=== PATIENT | female | born 1940 | race Caucasian/White ===

== ENCOUNTER 2017-02-05 09:45 | Day surgery (SDC) | payer MEDICARE, OTHER ==
[~2017-02-05] VITALS: Ht 165.1 cm; Wt 100.2 kg
[2017-02-05] VITALS (11 sets, daily range): BP systolic 121–151; BP diastolic 51–77; PULSE 65–71; RESP 12–18; O2SAT 94–98
[~2017-02-05 09:45] MED LIST: CALC3.8S NS; CLOB15CR3 TOP; COLC0.6C3 PO; Dexamethasone 4 mg/mL Inj IVPUSH PRN; EPHEDrine Sulfate 50 mg/mL Inj IVPUSH PRN; GABA-500 PO; HYDROmorphone 1 mg/mL Inj IVPUSH PRN; KETO120S3 TP; LEVO88TA4 PO; LIOT25TA4 PO; Labetalol 5 mg/mL 4 mL Inj IV PRN; Lactated Ringer's 1,000 ML IV SCH; Lactated Ringer's 500 ML IV PRN; METO25TA6 PO; MetoCLOpramide 5 mg/mL 2 mL Inj IVPUSH PRN; OMEP20CA11 PO; Ondansetron 2 mg/mL 2 mL Inj IVPUSH PRN; Phenylephrine 10,000 mCg/mL Inj IVPUSH PRN; TRIA1CAP5 PO; WARF2.5T82 PO; WARF5TAB7 PO; fentaNYL-PF 50 mCg/mL 2 mL Inj IVPUSH PRN; hydrALAZINE 20 mg/mL Inj IVPUSH PRN; vitamin d2
[2017-02-05] MEDS ORDERED: Propofol 10,000 mCg/mL 20 mL Inj ONE (09:46)
[2017-02-05] MEDS ORDERED: Ondansetron 2 mg/mL 2 mL Inj ONE (09:46)
[2017-02-05] MEDS ORDERED: fentaNYL-PF 50 mCg/mL 2 mL Inj ONE (09:46)
[2017-02-05] MEDS ORDERED: Ketamine 10 mg/mL 20 mL Inj ONE (09:46)
[2017-02-05] MEDS ORDERED: Dexamethasone 4 mg/mL Inj ONE (09:46)
[2017-02-05] MEDS: Lactated Ringer's 1,000 ML IV SCH ×2 (10:52→12:51)
[2017-02-05 11:19] LABS: INR 1.09 ratio
[2017-02-05] MEDS ORDERED: Bupivacaine 0.5%/EPI 50 mL Inj INFILTRATE ONE (12:50)
--- NOTE | 2017-02-05 12:52 | PCM.HPANE ---
Patient Data Date of Service: February 05, 2017 Surgeon Admitting Provider: Attending Provider:Neo Thomas MD Primary Care Physician:Andry Seymour MD Other Provider:Caridad Perez Anesthesia Reason for Visit Left Breast Lobular Carcinoma In Situ Ht/WT & BMI Height (Feet): 5 Height (Inches): 5.00 Weight (Kilograms): 100.2 Body Mass Index 36.00 Allergies Coded Allergies: codeine (Verified Allergy, Severe, Nausea,Vomiting, 02/11/14) Penicillins (Verified Allergy, Unknown, 02/11/14) Sulfa (Sulfonamide Antibiotics) (Verified Allergy, Unknown, 02/11/14) alprazolam (Verified Adverse Reaction, Severe, BLACKOUT X 24 HRS, 02/11/14) Past Anesthesia History Anesthesia History: Denies:: Anesthesia Reactions (sensitive to sedation, ), Fam Anesthesia Reaction, Fam Malignant Hypertherm, Malignant Hyperthermia Diabetes History Hx Diabetes?: No MRSA MRSA: No Medications Blood Thinner: Coumadin Hypertension Medication: Yes Home Meds Incl Beta Hosea: Yes Date Beta Hosea Taken: February 05, 2017 Time Beta Hosea Taken: 0730 Reported Medications Warfarin Sodium 5 Mg Tablet5 Mg PO 6xweek 30 Days Ref 0 01/31/17 Warfarin Sodium 2.5 Mg Tablet2.5 Mg PO saturday 30 Days Ref 0 01/31/17 [vitamin d2] No Conflict Check50,000 Iu WEEKLY 01/31/17 Triamterene/HCTZ 37.5-25 mg 1 Each Capsule1 Capsule PO DAILY Ref 0 01/31/17 Omeprazole 20 Mg Capsule.dr20 Mg PO DAILY Ref 0 01/31/17 Metoprolol Tartrate 25 Mg Apahbj77 Mg PO BID 30 Days Ref 0 01/31/17 Levothyroxine 88 Mcg Urymxw10 Mcg PO DAILY Ref 0 01/31/17 Ketoconazole 120 Ml Dqqajkd668 Ml TP DAILY PRN For Itching 01/31/17 Gabapentin 100 Mg Mynjsmj505 Mg PO HS 30 Days Ref 0 01/31/17 Liothyronine Sodium (Cytomel)25 Mcg Tmkibg83.5 Mcg PO DAILY 01/31/17 Colchicine 0.6 Mg Capsule0.6 Mg PO BID PRN gout 01/31/17 Discontinued Reported Medications Clobetasol Propionate/Emoll (Clobetasol Emollient 0.05% Crm)15 Gm Cream..g.1 Appl TOP 2-3xweekly #1 TUBE 01/31/17 Calcitonin,[place],Synthetic (Calcitonin-[place])3.7 Ml Manley.pump3.7 Ml NS DAILY 01/31/17 Ergocalciferol (Vitamin D2) (Vitamin D2)50,000 Unit Wjuuezc73,000 Unit PO QW 30 Days 02/28/15 Triamterene/HCTZ 37.5-25 mg (Dyazide 37.5-25 mg)1 Each Capsule1 Each PO DAILY 30 Days Ref 0 02/28/15 Calcitonin,[place],Synthetic (Miacalcin)200 Unit/1 Ml Crgv091 Unit IJ DAILY 02/28/15 Colchicine (Colcrys)0.6 Mg Tablet1.2 Mg PO PRN 00 02/28/15 Warfarin Sodium (Coumadin)5 Mg Tablet5 Mg PO wed 30 Days Ref 0 02/28/15 Warfarin Sodium 5 Mg Tablet7.5 Mg PO daily except wed 30 Days Ref 0 02/28/15 Triamterene/HCTZ 37.5-25 mg 1 Each Capsule0.5 Tab PO DAILY FLUID RETENTION IN THE BRAIN 0 Days Ref 0 02/09/14 Omeprazole 20 Mg Capsule.dr20 Mg PO DAILYAC 0 Days Ref 0 02/09/14 Levothyroxine 88 Mcg Wmcuxc70 Mcg PO DAILY thyroid 0 Days Ref 0 02/09/14 Liothyronine Sodium (Cytomel)25 Mcg Ehtdxg53.5 Mcg PO DAILY thyroid 02/09/14 Albuterol HFA 8.5 Gm Hfa.aer.ad2 Puff IH Q4-6H PRN breathing #1 INHALER Ref 0 02/09/14 Discontinued Scripts Aspirin (Aspir 81)81 Mg Tablet.dr81 Mg PO DAILY until INR therapeutic 7 Days Ref 0 Prov:Meg Gregg MD 02/14/15 [Diltiazem Hcl] (Cardizem CD)180 MG CAP.ER.24H No Conflict Tqkhx437 Mg PO DAILY #30 Prov:Meg Gregg MD 02/14/15 History History of ENT Problems?: No HEENT History: Positive for:: Glaucoma (had laser surgery for, no gtts) Sinus Problem (environmental allergies "dripping now") Denies:: Cataracts Dysphagia Hearing Problem Denture Type: None Teeth Condition: Within Normal Limits Hx of Heart Problems?: Yes Cardiovascular History: Positive for:: Atrial Fibrillation (PAF) Chest Pain (current) Edema Hypertension Irregular Heartbeat (PAF one episode - converted on her own less than 24 hours ) Denies:: Cardiac Surgery Congestive Heart Failure Heart Murmur Pacemaker Thrombophlebitis Other Cardiac History: Aortic stenosis Hx of Respiratory Problem?: No Respiratory History: Denies:: Asthma COPD Chest Surgery Dyspnea Emphysema Hemoptysis Oxygen Administration Pneumonia Tuberculosis Use of C-PAP Machine Use of Inhalers / NEBS Hx Neurologic Problems?: No Neurological History: Denies:: Dizziness Headaches Multiple Sclerosis Parkinson's Disease Seizures TIA Hx of GI Problems?: Yes Hx of Problems?: Yes Genitourinary History: Denies:: HX of Hemodialysis Kidney Stones Urinary Tract Infection Female Hx: Positive for:: Problems with Breasts? (left breast ca current admission problem) Denies:: Currently Endometriosis Pelvic Inflammatory Skin History: Denies:: History Skin Disorders? Pressure Ulcers Hx Musculoskeletal Problems?: Yes Musculoskeletal History: Positive for:: Back Injury (hx of fx ) Joint Replacement (right total knee) Osteoarthritis Denies:: Fibromyalgia Musculoskeletal Trauma (hx of acromioplasty) Systemic Lupus Hx of Psycho/Social Problems?: Yes Psycho Social History: Denies:: Anxiety (PTSD when major crises occur overseas ) Hx Depression Hx Surgeries?: Yes (, (R) Knee, bladder suspension, acromioplasty) Hx Any Other Health Problems?: Yes Other History: Positive for:: Cancer (left breast current admission problem) Hospitalization Thyroid Disease History Blood Transfusions: Positive for:: Accept Blood Products? Blood Transfuse Reaction Denies:: Blood Transfusions Hx Diabetes: No Hx Alcohol Use: YesAlcoholic Drinks Per Day: yearly, holidaysHx Substance Use : No Smoking Status: Never Smoker Have You Smoked inLast 12 mo: No Stop/Bang S-Snoring: Do You Snore Loudly: No T-Tired: feel tired, fatigued: No O-Obsered: Observed not breath: No P-Blood Pressure: treated: Yes B- Body Mass Index > 35 kg/m2: Yes A- Age over 50: Yes N- Neck Large Circumference: No G- Gender Male: No LASHAWN Total Score: 3 LASHAWN Risk Assessment: Low Risk, <3 Yes Risk Assessment Category Category 1A: Patient has history of documented sleep apnea, and HAS NOT received any narcotic, sedative or anesthesia administration during this stay. Category 1B: Patient has history of documented sleep apnea, and HAS received any narcotic , sedative or anesthesia administration during this stay Category 2: Patient has SUSPECTED Obstructive Sleep Apnea, and HAS received any narcotic , sedative or anesthesia administration during this stay. Category 3: Patient has SUSPECTED Obstructive Sleep Apnea and HAS NOT received narcotic, sedative or anesthesia administration during this stay. Category 4: Outpatient in Procedural Areas with known sleep apnea or who screen positive for High Risk via the STOP/BANG questionnaire. Exam Exam Vital Signs Vital Signs Date Time Temp Pulse Resp B/P Pulse Ox O2 Delivery O2 Flow Rate FiO2 02/05/17 10:40 36.7 66 16 151/75 98 Room Air General Appearance: Alert, Oriented X3, Cooperative, No Acute Distress HEENT/AIRWAY: MP 4, Neck Movement Lungs: Clear to Auscultation, Normal Air Movement Heart: Exam Unremarkable, Regular Rate/Rhythm, No Murmurs/Rubs/Gallops Meds/Labs/Diagnostics Admission Meds Current Medications Lactated Ringer's (Lr) 1,000 ml @ 120 mls/hr Q8H20M IV Last administered on t 10:52; Start 02/05/17 at 05:00; Stop 02/05/17 at 13:19 Labs Test 02/05/17 10:48 Prothrombin Time 11.7sec (8.1-12.5) Prothromb Time International Ratio 1.09ratio Plan Impression Patient chart reviewed, patient interviewed and anesthestic plan with risks, benefits, and alternatives discussed, and informed consent obtained. NPO per Anesth. Guidelines: Yes ASA Physical Status: ASA3 Severe Disease Anesthetic Plan: GA Bene/Risks/Altern/Consents: Yes HP Complete Prior to Induction: Yes Alvin Solis MD February 05, 2017 12:52
--- NOTE | 2017-02-05 13:29 | PCM.DISURG ---
Surgical Discharge Instruction Date of Service February 05, 2017 Dates of Hospitalization Date of Hospital Admission Providers Admitting Physician: Primary Care Physician: Andry Seymour MD Attending Physician: Neo Thomas MD Discharge Diagnosis Discharge Diagnosis Left breast LCIS Diet Discharge Diet: No restrictions Activity Discharge Activity-General: No restrictions Dressing and Incisional Care Dressing Care: Allow Steri Stripes to fall off, Remove outer dressing after 24 hrs Hygiene: May shower after (24 hours) Follow Up Plan Follow Up Plan With Dr. Thomas in surgery clinic in 2 weeks Call your provider for: Fever (over 101.5), Discharge @ incision, pus discharge Neo Thomas MD February 05, 2017 13:29
[2017-02-05] MEDS ORDERED: HYDROcodone-APAP 5-325 mg Tablet PO PRN (13:30)
--- NOTE | 2017-02-05 13:35 | PCM.SURGOP ---
Surgical Operative Report Date of Service: February 05, 2017 Pre Operative Diagnosis Left breast lobular carcinoma in situ Post Operative Diagnosis Same Procedure: Wire localized left partial mastectomy Surgeon and Filler Wiper: Surgeon: Neo Thomas MD Assistants: None Indication for Procedure 76-year-old woman who was found to have pleomorphic microcalcifications in the left breast 9 o'clock position. Stereotactic biopsy demonstrated lobular carcinoma in situ. There were some associated microcalcifications anterior and lateral. After discussion of risks and benefits, she agreed to proceed with wire localized left partial mastectomy. Findings: The microcalcifications were successfully localized. Procedure Details Preoperatively, the patient underwent wire localization in the [facility]. She was then brought to the operating room where she underwent smooth induction of general anesthesia with an LMA. She was placed in the supine position with the left arm out, and was prepped and draped in wide sterile fashion. A procedural pause was performed according to the SCOAP checklist, and all were found to be in agreement. A transverse incision was made in the left medial breast, approximately 2 cm medial to the wire. Skin flaps were raised superiorly and inferiorly. The wire was delivered into the wound from the medial aspect. Circumferential dissection was then carried out through the breast parenchyma, using the wire as a guide. Breast tissue was excised from the lower inner quadrant, oriented with suture, and a specimen x-ray was obtained. This confirmed that microcalcifications had been successfully localized. That tissue was sent for permanent pathology, labeled as left breast tissue, lower inner quadrant. A separate lateral margin was obtained with electrocautery, oriented with suture, and sent for permanent pathology. The cavity was marked with hemoclips. The breast parenchyma was closed with interrupted 3-0 Vicryl sutures. The skin incision was closed with a running 4-0 Vicryl subcuticular stitch. Steri- Strips and sterile dressings were applied. At the end of the case all needle and sponge counts were correct 2. The patient was awakened from anesthesia without difficulty, and taken to the recovery room in satisfactory condition, having tolerated the procedure well. Complications There were no periprocedural complications identified. Surgical Specimen Removed: Yes Specimen sent to Pathology: Yes Surgical Specimen description: Left breast tissue, lower inner quadrant. Lateral margin. Anesthetic Plan: GA Grafts, Implants: None Output, Estimated Blood Loss: 10 Blood Administration during lock: No Drains: None Catheters: None copies to: Andry Seymour MD; Sailaja Vieira MD, Joshua D MD February 05, 2017 13:35
--- NOTE | 2017-02-05 13:51 | PCM.ANEP1 ---
Post Anesthesia Phase 1 PACU Phase 1 Assessment Date of Service: February 05, 2017 Vital Signs Vital Signs Date Time Temp Pulse Resp B/P Pulse Ox O2 Delivery O2 Flow Rate FiO2 02/05/17 13:35 69 15 122/54 97 Room Air 02/05/17 13:30 69 12 126/53 94 Room Air 02/05/17 13:27 36.3 71 18 121/54 95 Room Air 02/05/17 10:40 36.7 66 16 151/75 98 Room Air Anesthetic Administered: GA Level of Alertness: Awake, talking Pain: No Nausea or Vomiting: No Cardiovascular Function and Hy: Yes Oxygen Delivery: Room Air Lungs: Clear to Auscultation, Normal Air Movement Complications: No Alvin Solsi MD February 05, 2017 13:51
--- NOTE | 2017-02-06 08:05 | DRSVH ---
SPECIMEN LEFT BREAST: 02/05/2017 CLINICAL: Breast specimen. Correlation is made to exams dated: 12/27/2016 mammogram, 02/05/2017 localization, 12/24/2016 mammogram, and 01/10/2017 stereotactic biopsy - [facility]. A lumpectomy specimen was imaged for the area of clustered pleomorphic calcifications located in the left breast at 9 o'clock posterior depth. This was described on the previous mammography and biopsy reports. IMPRESSION: SPECIMEN The imaged specimen includes the calcifications and the distal portion of the localization wire and d oes not include biopsy clip. Waiting for pathology results. A final report will be issued when thes e become available. This exam was interpreted at Station ID: [id number]. Harsh ponce/rory:02/05/2017 13:27:00 Additional referring physicians: ADELAIDA GIL RYAN GUARY
--- NOTE | 2017-02-07 15:40 | PATH ---
SURGICAL PATHOLOGY Attending Physician:Kristie Marcos CASE STATUS: Signed Out PATIENT NAME: JONO ALLEN PID: [id number] : 1940 DATE COLLECTED:02/05/2017 00:00 SPECIMEN: 1: Breast Mass, Excision (Wire Localization) 2: Breast Margin CLINICAL HISTORY: LEFT BREAST CARCINOMA 1). LEFT BREAST TISSUE LOWER INNER QUADRANT, SHORT STITCH SUPERIOR, LONG STITCH LATERAL 2). LEFT BREAST LATERAL MARGIN, SHORT STITCH SUPERIOR, LONG STITCH POSTERIOR FINAL DIAGNOSIS: 1.LEFT BREAST, ORIENTED EXCISIONAL BIOPSY: LOBULAR NEOPLASIA (ATYPICAL LOBULAR HYPERPLASIA WITH SMALL FOCI OF LOBULAR CARCINOMA IN SITU) SPANNING APPROXIMATELY 4.5 CM IN THE MEDIAL HALF OF THE SPECIMEN, SEE COMMENT. NO INVASIVE CARCINOMA IDENTIFIED. PRIOR CORE BIOPSY SITE IDENTIFIED. FOCAL USUAL DUCTAL EPITHELIAL HYPERPLASIA, NO ATYPIA. FOCAL APOCRINE METAPLASIA. CALCIFICATIONS ASSOCIATED WITH BENIGN GLANDS. 2.LEFT BREAST LATERAL MARGIN: LOBULAR NEOPLASIA (ALH WITH FOCAL LCIS), SPANNING APPROXIMATELY 3.0 CM, SEE COMMENT. NO INVASIVE CARCINOMA IDENTIFIED. FOCAL APOCRINE METAPLASIA. CALCIFICATIONS ASSOCIATED WITH ALH AND WITH BENIGN GLANDS. ICD10 code D05.0 NOTE: Both specimens contain lobular neoplasia, primarily atypical lobular hyperplasia with small foci of lobular carcinoma in situ. The lobular neoplasia is of classic type (no pleomorphic features identified). No invasive carcinoma is identified in either specimen. These findings were discussed by telephone with Dr. Thomas on 02/07/[address] Villasenor. GROSS DESCRIPTION: The specimens are received in formalin, labeled with the patient's name, and sublabeled as the following: (1) left breast tissue lower quadrant; (2) left breast lateral margin. (1) The specimen consists of a piece of breast tissue (2.0 cm AP, 5.4 cm SI, 9.0 cm ML) with no overlying skin. The specimen is oriented with 2 black sutures (short-superior, long-lateral). A localization wire is present. The specimen is serially sectioned ML into 25 slices with the medial and lateral resection margins at slices #1 and #25 respectively. The breast tissue is fatty and focally fibrous and contains a ruano-white solid firm irregular firm area (1.8 x 0.8 x 0.5 cm) within slices #14-#18. The firm area is 0.5 cm from the anterior, 0.8 cm from the posterior, 1.0 cm from the superior, 2.9 cm from the inferior, 4.7 cm from the medial, and 2.5 cm from the lateral resection margins. No other nodules, masses or lesions are identified. Ink code: purple-anterior; yellow-posterior; black-superior; orange-inferior; green-medial; blue-lateral. Section code: (1A) medial resection margin, perpendicularly sectioned, entirely submitted; (1B-1D) slices #2-#7, submitted sequentially, 3 slices in each cassette, slices entirely submitted; (1E) slice #8, bisected SI, inferior half submitted; (1F) slice #9, entirely submitted; (1G) slice #10, bisected SI, inferior half submitted; (1H) slice #11, bisected SI, inferior half submitted; (1I) slice #12, bisected SI, superior half submitted; (1J-1K) slice #13, tissue adjacent to firm area, bisected and submitted SI, entirely submitted; (1L-1M) slice #14, bisected and submitted SI, entirely submitted; (1N-1O) slice #15, bisected and submitted SI, entirely submitted; (1P) slice #16, bisected SI, superior half submitted; (1Q) slice #17, bisected SI, superior half submitted; (1R-1S) slice #18, bisected and submitted SI, entirely submitted; (1T-1V) slice #19, tissue adjacent to firm area, trisected and submitted SI, entirely submitted; (1W-1Y) slices #20-#22, compliance representative dealer, submitted in sequential order; (1Z) lateral resection margin, perpendicularly sectioned, compliance representative dealer. (2) The specimen consists of a piece of breast tissue (3.5 cm AP, 3.3 cm SI, 1.3 cm ML) with no overlying skin. The specimen is oriented with 2 black sutures (short-superior, long-posterior). No localization wire is present. The breast tissue is densely fibrous and fatty with no nodules, masses or lesions identified. Ink code: purple-anterior; yellow-posterior; black-superior; orange-inferior; blue-medial*; green-lateral*. *not per the usual color code. Section code: (2A-2H) breast tissue, singly sectioned and submitted AP. Specimen entirely submitted. Note: Approximate total fixation time in formalin-29 hours and 30 minutes using a collection date of February 05, 2017 with no collection time given. 02/06/17 ANGEL MICRO DESCRIPTION: See diagnosis. ICD-9 CODES: CPT CODES: 1: 31578 2: 17661 Electronically Signed Out Gissell Villasenor MD [facility], [place] [address] Technical component performed at [facility], [facility] [address], [place], [address]
== END 2017-02-05 23:59 | disposition home or self-care (01) ==
LOC: SAS 09:45
PROVIDERS: ATTEND Student in an Organized Health Care Education/Training Program
DX: D05.02 Lobular carcinoma in situ of left breast (principal); I48.91 Unspecified atrial fibrillation; E03.9 Hypothyroidism, unspecified; I10 Essential (primary) hypertension; J45.909 Unspecified asthma, uncomplicated; M10.9 Gout, unspecified; I35.0 Nonrheumatic aortic (valve) stenosis; N39.41 Urge incontinence; Z79.01 Long term (current) use of anticoagulants
CPT/HCPCS: 19301; 36415; 76098; 85610; 88307; J1100; J1885; J2405; J3010; J7120

== ENCOUNTER 2017-02-08 21:21 | Inpatient (IN) | payer MEDICARE, OTHER ==
[~2017-02-08] VITALS: Ht 165.1 cm; Wt 100.8 kg
[~2017-02-08 21:21] MED LIST changes: -CALC3.8S NS; -CLOB15CR3 TOP; -Dexamethasone 4 mg/mL Inj IVPUSH PRN; -EPHEDrine Sulfate 50 mg/mL Inj IVPUSH PRN; -HYDROmorphone 1 mg/mL Inj IVPUSH PRN; -Labetalol 5 mg/mL 4 mL Inj IV PRN; -Lactated Ringer's 1,000 ML IV SCH; -Lactated Ringer's 500 ML IV PRN; -MetoCLOpramide 5 mg/mL 2 mL Inj IVPUSH PRN; -Ondansetron 2 mg/mL 2 mL Inj IVPUSH PRN; -Phenylephrine 10,000 mCg/mL Inj IVPUSH PRN; -fentaNYL-PF 50 mCg/mL 2 mL Inj IVPUSH PRN; -hydrALAZINE 20 mg/mL Inj IVPUSH PRN
--- NOTE | 2017-02-08 21:38 | ED.REPORT ---
HPI-General Illness Date of Service February 08, 2017 ED Provider: Indra Wright MD Pt is a 76 y.o. female with a hx of A-fib who presents to the ED via EMS c/o rapid palpitations onset 2 hours prior to arrival. She states that she was watching TV during onset. EMS reports that pt had HR from 60-120 en route. Pt reports associated nausea. She denies chest pain, SOB, and vomiting. Pt reports a hx of A-fib with RVR which required diltiazem. Pt had a recent lung biopsy, which she reports was normal. Nursing Notes Stated Complaint: IRREGULAR HEART RATE Nursing Notes Reviewed: Yes Allergies: Coded Allergies: codeine (Verified Allergy, Severe, Nausea,Vomiting, 02/08/17) Penicillins (Verified Allergy, Unknown, 02/08/17) Sulfa (Sulfonamide Antibiotics) (Verified Allergy, Unknown, 02/08/17) alprazolam (Verified Adverse Reaction, Severe, BLACKOUT X 24 HRS, 02/08/17) Scheduled ([vitamin d2]) 50,000 IU WEEKLY Gabapentin (Gabapentin) 100 Mg Capsule 200 MG PO HS Levothyroxine (Levothyroxine) 88 Mcg Tablet 88 MCG PO DAILY Liothyronine Sodium (Cytomel) 25 Mcg Tablet 12.5 MCG PO DAILY Metoprolol Tartrate (Metoprolol Tartrate) 25 Mg Tablet 25 MG PO BID Omeprazole (Omeprazole) 20 Mg Capsule.dr 20 MG PO DAILY Triamterene/HCTZ 37.5-25 mg (Triamterene/HCTZ 37.5-25 mg) 1 Each Capsule 1 CAPSULE PO DAILY Warfarin Sodium (Warfarin Sodium) 2.5 Mg Tablet 2.5 MG PO saturday Warfarin Sodium (Warfarin Sodium) 5 Mg Tablet 5 MG PO 6xweek Scheduled PRN Colchicine (Colchicine) 0.6 Mg Capsule 0.6 MG PO BID PRN PRN gout Ketoconazole (Ketoconazole) 120 Ml Shampoo 120 ML TP DAILY PRN PRN For Itching General Time Seen by MD: 21:37 Chief Complaint Other (Palpitation) Hx Obtained From: Patient, EMS Arrived By: Ambulance Sudden in Onset?: Yes Onset Occurred: 1 - 4 hours ago Symptom Duration: Since onset Severity: Current: No pain currently Severity: Maximum: No pain Similar Sx Previous: Yes Past Medical History Past Medical History Glaucoma Asthma GERD Squamous cell cancer Thyroid disease Atrial fibrillation Family History Noncontributory Smoking History Never Smoker Social History Alcohol Use: Denies alcohol use Drug Use: Denies drug use Other Social History: Good social support, Local resident Ambulatory Status Independent Review of Systems Full Review of Systems Respiratory: Denies: Shortness of breath Cardiovascular: Reports: Palpitations, Denies: Chest pain GI: Reports: Nausea, Denies: Vomiting Complete sys rev & neg: except as marked. Physical Exam Vital Signs Vital Signs Date Time Temp Pulse Resp B/P Pulse Ox O2 Delivery O2 Flow Rate FiO2 02/09/17 02:23 110 16 138/77 93 Room Air 02/08/17 23:34 108 16 98/46 97 Room Air 02/08/17 22:46 99 16 115/65 99 Room Air 02/08/17 22:19 108 16 105/51 99 Room Air 02/08/17 22:15 128 16 115/68 99 Room Air 02/08/17 21:57 36.7 126 12 128/92 97 Room Air Initial VS: Reviewed Head / Eyes: Atraumatic, Normocephalic Abdomen / GI: No distention Extremities: Vascular intact, Neuro intact Skin: Warm, Dry, No cyanosis Neurologic: Alert, Oriented, Nonfocal Psychiatric: Mood/affect normal, Behavior normal, Normal thought content General/Constitutional: Awake, Alert, No acute distress, Well appearing, Well developed, Well hydrated, Well nourished, Not toxic appearing Respiratory / Chest: Atraumatic, Breath sounds NL, Breath sounds = bilat, No respiratory distress Cardiovascular: Heart rate NL, Peripheral circulation NL Heart Rate / Rhythm: Positive: Irreg irregular rhythm No lower extremity edema Interpretation & Diagnostics Lab Results Interpretation Result Diagram: 02/08/175 02/08/17 2215 Test 02/08/17 22:15 White Blood Count 11.0th/mm3 (3.8-10.1) Red Blood Count 3.63mil/mm3 (3.90-5.20) Hemoglobin 11.1g/dL (12.0-15.6) Hematocrit 34.1% (35.0-46.0) Mean Corpuscular Volume 93.9fL (81-100) Mean Corpuscular Hemoglobin 30.6pg (27.0-35.0) Mean Corpuscular Hemoglobin Concent 32.6% (32.0-37.0) Red Cell Distribution Width 12.9% (12.3-15.4) Platelet Count 281bil/L (150-400) Neutrophils (%) (Auto) 58.0% (40-74) Lymphocytes (%) (Auto) 27.3% (14-46) Monocytes (%) (Auto) 11.4% (4-12) Eosinophils (%) (Auto) 2.7% (0-5) Basophils (%) (Auto) 0.4% (0-3) Prothrombin Time 11.3sec (8.1-12.5) Prothromb Time International Ratio 1.05ratio Activated Partial Thromboplast Time 25.8sec (22.8-33.0) Sodium Level 139mEq/L (134-144) Potassium Level 3.9mEq/L (3.5-5.2) Chloride Level 99mEq/L (97-108) Carbon Dioxide Level 25mmol/L (18-29) Blood Urea Nitrogen 22mg/dL (8-27) Creatinine 0.95mg/dL (0.57-1.00) Estimat Glomerular Filtration Rate 81mL/min (>59) Glucose Level 132mg/dL (60-99) Calcium Level 9.2mg/dL (8.5-10.1) Magnesium Level 1.5mg/dL (1.6-2.6) Total Bilirubin 0.2mg/dL (0.0-1.2) Aspartate Amino Transf (AST/SGOT) 14U/L (0-50) Alanine Aminotransferase (ALT/SGPT) 8U/L (0-32) Alkaline Phosphatase 105U/L (25-165) Troponin T 0.010ug/L (0.0-0.011) Pro-B-Type Natriuretic Peptide 4734pg/mL (0-738) Total Protein 6.8g/dL (6.4-8.4) Albumin 3.6g/dL (3.4-5.0) Thyroid Stimulating Hormone (TSH) 1.440uIU/mL (0.450-4.500) Free Thyroxine 1.38ng/dL (0.82-1.77) Hold Estevez Top Tube Received (Received) ECG Interpretation Time: 22:13 Interpreted by: ED physician Rhythm / Conduction: Atrial fib with RVR (rate of 122) X-Ray Chest Interpretation Chest Xray Interpretation: IMPRESSION: No acute cardiopulmonary disease. Interpretation / Wet Read by: Wet read ED physician Re-Eval/Medical Decision Med Decision/Clinical Course [age] year old prior history of rapid A. fib, presents with A. fib and a rate in the 120s, somewhat more controlled than previous episode, probably due to her ongoing metoprolol. Given diltiazem as a bolus and a drip with improvement of her rate but still in atrial fibrillation. Hope was that she would convert again rapidly, but she has not. She is admitted now for continuing treatment with diltiazem and hopefully cardioversion by that means. Initial cardiac enzymes negative. No other immediately correctable electrolyte. No significant hyperthyroidism. Source of Hx: Old records Time of Eval: 02:20 Re-Evaluation/Progress Note: Pt is requesting that she be moved to the floor. Notified that beds just became available and she will be admitted shortly. Consultation : Referral / Consult Name: Bassem Nunez MD Consulted With: Hospitalist Call Returned at: 02:25 Nutrition Technician: Accepts admit Note: Discussed pt condition, accepts admit. Counseled Regarding: Diagnosis, Lab results, Need for follow-up, When/why to return to ED Discharge & Departure Primary Impression: Atrial fibrillation with RVR Disposition: ADMITTED TO HOSPITAL Discharge Condition All VS Reviewed: Yes Condition: Improved Referrals: Andry Seymour MD (PCP) Crit Care Except Billable Proc Time Spent: 30-74 minutes (thirty minutes) Services Performed: Patient management by me, Time spent at bedside, Reviewing test results, Reviewing imaging, Discussing patient care, Documentation in record Scribe Attestation Portions of this note were transcribed by Power Chino. I, Dr. Wright personally performed the history, physical exam and medical decision-making; I reviewed and confirmed the accuracy of the information in the transcribed note. Signed by: Naeem Dixon, 02/08/17 and 0231. copies to: Andry Seymour MD, Christopher W MD February 08, 2017 21:38 POWER [place]INO February 08, 2017 21:45
[2017-02-08] MEDS ORDERED: Diltiazem 5 mg/mL 5 mL Inj IVPUSH ONE (21:55)
[2017-02-08 21:57] VITALS: BP 128/92; PULSE 126; RESP 12; O2SAT 97
[2017-02-08 22:15] VITALS: BP 115/68; PULSE 128; RESP 16; O2SAT 99
[2017-02-08 22:19] VITALS: BP 105/51; PULSE 108; RESP 16; O2SAT 99
[2017-02-08 22:21] LABS: BASOPHILS % (AUTO) 0.4 % (0-3); EOSINOPHILS % (AUTO) 2.7 % (0-5); MONOCYTES % (AUTO) 11.4 % (4-12); Mean Corpuscular Hemoglobin 30.6 pg (27.0-35.0); Mean Corpuscular Volume 93.9 fL (81-100); Platelet Count 281 bil/L (150-400)
[2017-02-08] MEDS ORDERED: Diltiazem 125 mg/125 mL D5W IV SCH ×2 (22:25)
[2017-02-08] MEDS ORDERED: DILTIAZEM IV SCH (22:37)
[2017-02-08] MEDS ORDERED: SODIUM CHLORIDE 0.9% IV SCH (22:37)
[2017-02-08 22:45] LABS: INR 1.05 ratio
[2017-02-08 22:46] VITALS: BP 115/65; PULSE 99; RESP 16; O2SAT 99
[2017-02-08 22:57] LABS: TROPONIN T 0.01 ug/L (0.0-0.011)
[2017-02-08 23:24] LABS: Magnesium 1.5 mg/dL (1.6-2.6)
[2017-02-08 23:34] VITALS: BP 98/46; PULSE 108; RESP 16; O2SAT 97
[2017-02-08] MEDS ORDERED: Magnesium Sulf 2 Gm/50mL Water 2 GM in IV Premix 1 EACH IV ONE (23:50)
[2017-02-09] VITALS (9 sets, daily range): BP systolic 102–138; BP diastolic 54–77; PULSE 95–117; RESP 16–22; O2SAT 93–96
[2017-02-09] MEDS ORDERED: Heparin 5,000 Unit/mL Inj IVPUSH ONE (02:40)
[2017-02-09] MEDS ORDERED: Ondansetron 2 mg/mL 2 mL Inj IVPUSH PRN (02:40)
[2017-02-09] MEDS ORDERED: Alum-Mag Hydrox-Simeth 30 mL Suspension PO PRN (02:40)
[2017-02-09] MEDS ORDERED: Polyethylene Glycol (PEG) 17 Gm Powder PO PRN (02:40)
[2017-02-09] MEDS ORDERED: Heparin 25,000 UNIT in 0.45% Sodium Chloride 475 ML IV SCH (03:55)
--- NOTE | 2017-02-09 05:18 | PCM.HPMED ---
Subjective Date of Service February 09, 2017 Primary Provider: Admitting Physician: Bassem Nunez MD Primary Care Physician: nAdry Seymour MD Attending Physician: Bassem Nunez MD Admit Status: From the Emergency Department, Full Admit, [facility] Telemetry Chief Complaint: Palpitations History of Present Illness: Zuly Adkins is a 76 y.o. female with Non sustained Atrial fibrillation, Left Breast Lobular carcinoma in situ, Hypertension, Hypothyroidism who presents to [facility] emergency department via EMS c/o rapid palpitations onset 2 hours prior to arrival. Patient was watching TV during onset. She felt some chest tightness and pain around her neck area. Other associated symptoms includes nausea but no vomiting. Denies any dizziness. Symptoms persisted with no reliving factors and exacerbated by movement. She called 911 EMS reports that pt had HR from 60-120 en route. Given IV Diltiazem Patient has history of Paroxysmal Atrial fibrillation and currently on Coumadin and Metoprolol bid. Pt had a recent breast biopsy, which was carcinoma in situ but Dr Thomas was able to resect it all. Case discussed with Dr Wright, Diltiazem drip started and continued. Patient will be admitted Review of Systems: Pertinent positives as noted in HPI. All other systems were reviewed and are negative Allergies Coded Allergies: codeine (Verified Allergy, Severe, Nausea,Vomiting, 02/08/17) Penicillins (Verified Allergy, Unknown, 02/08/17) Sulfa (Sulfonamide Antibiotics) (Verified Allergy, Unknown, 02/08/17) alprazolam (Verified Adverse Reaction, Severe, BLACKOUT X 24 HRS, 02/08/17) Home Medications From [facility], not yet confirmed Zuly Adkins. [id number] 1940 01/31/2017 11:45 AM Page: 09/28 calcitonin (salmon) 200 unit/actuation nasal spray [place] into alternating nostrils 1 squirt daily calcitonin (salmon) 200 unit/actuation nasal spray inhale 1 spray by nasal route every day alternate nares clobetasol 0.05 % scalp solution apply every day to the affected scalp area twice daily for 2 wks then 2-3 times a week colchicine 0.6 mg tablet take 1 tablet by ORAL route 2 times every day as needed for gout flare CYTOMEL 25 MCG TABLET 25MCG TAB Take 1/2 tablet daily for thyroid gabapentin 100 mg capsule TAKE 2 CAPSULES 2 TIMES A DAY ketoconazole 2 % shampoo apply three times a week to the affected area(s), lather, leave in place for 5 minutes, and then rinse off with water levothyroxine 88 mcg tablet take 1 tablet (88MCG) by oral route every day for thyroid. metoprolol tartrate 25 mg tablet take 1 tablet by oral route 2 times every day omeprazole 20 mg capsule,delayed release take 1 capsule (20MG) by oral route every day before a meal for acid reflux. triamterene 37.5 mg-hydrochlorothiazide 25 mg tablet TAKE 1 TABLET DAILY FOR HIGH BLOOD PRESSURE Vitamin D2 50,000 unit capsule take 1 capsule by ORAL route every week warfarin 5 mg tablet Take 1/2 (2.5mg) tablet on Saturday and take 1 (5mg) tablet on all other days of the week Zostavax (PF) 19,400 unit/0.65 mL subcutaneous suspension inject sub cut PMH 1. Paroxysmal atrial fibrillation, on anticoagulation therapy with warfarin. 2. Intermittent asthma after respiratory tract infections. 3 Osteoarthritis, status post right total knee arthroplasty in September 2015. 4. Hypothyroidism. 5. Gastroesophageal reflux disease. 6. Chronic Diastolic Congestive Heart Failure 7. Lobular carcinoma in situ. Plans for localized excisional left breast biopsy 8. Urinary incontinence 9. Glaucoma 10. Hypertension with Hypertensive heart disease 11. Gout . Surgical History in 1973. Right total knee arthroplasty in 2015. Tonsillectomy D&C Breast biopsy Bladder suspension Family History The patient's mother had endometrial cancer at age 70 and breast cancer at age 82, but later of unrelated causes. She does not have any sisters. There is no other family history of breast or ovarian cancer. Social History Hx Alcohol Use: Yes Hx Substance Use: No Hx Tobacco Use: No Smoking Status: Never Smoker Living Arrangement: with Family (with her Son in [place]) Exam Vital Signs Vital Sign - Last Date Time Temp Pulse Resp B/P Pulse Ox O2 Delivery O2 Flow Rate FiO2 02/09/17 02:23 110 16 138/77 93 Room Air 02/08/17 21:57 36.7 Exam General: Alert, Oriented X3, Cooperative, No acute Distress Eyes: PERRLA, Scleral Anicteric Mouth: Mouth Normal, Mucous Membranes Moist/[place] Neck: Supple, no Thyromegaly, trachea central. Chest & Lungs: Clear to auscultation & percussion, No adventitious breath sounds, no crackles, no wheeze Cardiovascular: Normal S1, Normal S2, No Murmurs/Rubs/Gallops, Regular Rate/ Rhythm, Irregularly irregular (No JVD, no peripheral edema) Pulses: Radial (present and equal), Dorsalis Pedi (present and equal) Abdomen: Soft, Non-tender, Non-distended, Normoactive bowel tones. Musculoskeletal: Unremarkable. Normal range of motion, no swollen or erythematous joints Extremities: No edema, no cyanosis, no clubbing. Skin: No rashes. Warm and dry, no erythematous areas Neurological: Grossly neurologically intact, Normal Speech, Sensation Intact Lymphatic: Lymph nodes Cervical and Axillary not palpable. Lab and Diagnostics Labs Laboratory Tests Test 02/08/17 22:15 White Blood Count 11.0th/mm3 (3.8-10.1) Red Blood Count 3.63mil/mm3 (3.90-5.20) Hemoglobin 11.1g/dL (12.0-15.6) Hematocrit 34.1% (35.0-46.0) Mean Corpuscular Volume 93.9fL (81-100) Mean Corpuscular Hemoglobin 30.6pg (27.0-35.0) Mean Corpuscular Hemoglobin Concent 32.6% (32.0-37.0) Red Cell Distribution Width 12.9% (12.3-15.4) Platelet Count 281bil/L (150-400) Neutrophils (%) (Auto) 58.0% (40-74) Lymphocytes (%) (Auto) 27.3% (14-46) Monocytes (%) (Auto) 11.4% (4-12) Eosinophils (%) (Auto) 2.7% (0-5) Basophils (%) (Auto) 0.4% (0-3) Prothrombin Time 11.3sec (8.1-12.5) Prothromb Time International Ratio 1.05ratio Activated Partial Thromboplast Time 25.8sec (22.8-33.0) Sodium Level 139mEq/L (134-144) Potassium Level 3.9mEq/L (3.5-5.2) Chloride Level 99mEq/L (97-108) Carbon Dioxide Level 25mmol/L (18-29) Blood Urea Nitrogen 22mg/dL (8-27) Creatinine 0.95mg/dL (0.57-1.00) Estimat Glomerular Filtration Rate 81mL/min (>59) Glucose Level 132mg/dL (60-99) Calcium Level 9.2mg/dL (8.5-10.1) Magnesium Level 1.5mg/dL (1.6-2.6) Total Bilirubin 0.2mg/dL (0.0-1.2) Aspartate Amino Transf (AST/SGOT) 14U/L (0-50) Alanine Aminotransferase (ALT/SGPT) 8U/L (0-32) Alkaline Phosphatase 105U/L (25-165) Troponin T 0.010ug/L (0.0-0.011) Pro-B-Type Natriuretic Peptide 4734pg/mL (0-738) Total Protein 6.8g/dL (6.4-8.4) Albumin 3.6g/dL (3.4-5.0) Thyroid Stimulating Hormone (TSH) 1.440uIU/mL (0.450-4.500) Free Thyroxine 1.38ng/dL (0.82-1.77) Hold Estevez Top Tube Received (Received) Result Diagram: 02/08/17221402/08/17 221 Assessment & Plan Zuly Adkins is a 76 y.o. female with Non sustained Atrial fibrillation, Left Breast Lobular carcinoma in situ, Hypertension, Hypothyroidism who presents to [facility] emergency department via EMS c/o rapid palpitations 1. Atrial Fibrillation with rapid ventricular response. Present on admission History of Paroxysmal Atrial Fibrillation but unclear why she is rapid response. Possible due to recent procedure and missed medication dose. INR subtherapeutic as she was recently started on Coumadin after her breast procedure. Rule out underlying ischemia and checking Thyroid function. - monitor on telemetry - continuing Diltiazem drip for rate control - trending troponin overnight - checking thyroid function - complete echo requested - continue Metoprolol 25 mg bid - anticoagulations with Heparin drip and Coumadin (dosed by Pharmacy) 2 Hypertension - holding Triamterene/HCTZ for now 3 Hypothyroidism - continue Synthroid 88 mcg daily - TSH normal range 4 Gout - continue Colchicine 0.6 mg bid as needed - Acetaminophen as needed for mild pain/fever/headache - Bowel regimen as needed - Antiemetic as needed Patient admitted under inpatient status with expected length of stay > 2 midnights for severity of present symptoms, complexities of treatment plan and risk for adverse event . Resuscitation Status: CPR: Attempt Resuscitation Bassem Nunez MD February 09, 2017 02:48
[2017-02-09] MEDS: Heparin 25K Unit/500mL 0.45 NS 25,000 UNIT in IV Premix 1 EACH IV SCH (06:07)
[2017-02-09 08:53] LABS: BASOPHILS % (AUTO) 0.4 % (0-3); EOSINOPHILS % (AUTO) 3.1 % (0-5); MONOCYTES % (AUTO) 9.1 % (4-12); Mean Corpuscular Hemoglobin 30.5 pg (27.0-35.0); NEUTROPHILS % (AUTO) 55.6 % (40-74); Platelet Count 255 bil/L (150-400)
--- NOTE | 2017-02-09 08:59 | NUR ---
Admission Pt arrived to [facility] alert and oriented x 3 via [facility] [place] 0325. Pt was able to [place] [facility] [place] [facility] and then onto the bed with a steady gait. Generalized weakness noted. Pt denies chest pain/pressure and shortness of breath. Pt oriented to room, bed controls, call light, television, and bathroom. Pt has MP30, Heparin, and Cardizem in place at this time. Non slip socks on for safety. Care ongoing.
--- NOTE | 2017-02-09 09:24 | NUR ---
Social Work: Initial Assessment Data & Assessment: See Initial Assessment. EMR reviewed. Patient is a 76 y/o female that admitted on 02/09 17 for AFIB per H&P. SW met with patient at bedside to complete initial assessment, SW role reviewed, and discharge planning discussed. Patient confirmed that her PCP is Dr. Andry Boswell and her insurance is Medicare and [employer]. Patient does not have an Advance Directive/DPOA and declined information. Patient currently does not have a re-admit score. Patient has no LTC or VA benefits. Patient lives at home with her son and is independent at baseline. Patient reports that she is independent and still works and drives. Patient has a walker and cane if needed. Patient has history with [facility] and has been to [facility]. Patient does not appear to have any current discharge needs. SW wrote contact information on patient's white board. SW will continue to follow and assist patient with discharge planning needs. Plan: Patient discharge plan is still pending. SW will continue to follow and assist patient with discharge plannig needs. Marcelino Tapia LMSW, QUIN Addendum: 02/09/17 at 0935 by MARCELINO CONRAD Amended: Links added.
[2017-02-09] MEDS ORDERED: ACET325T51 PO (09:25)
--- NOTE | 2017-02-09 09:25 | DRSVH ---
PROCEDURE: X-RAY CHEST ONE VIEW, PORTABLE ([id number]) INDICATIONS: rapid afib TECHNIQUE: One view of the chest was acquired. COMPARISON: [facility], , CHEST 1VW (PORTABLE), 02/11/2015, 16:40. FINDINGS: Surgical changes and devices: None. Lungs and pleura: No pleural effusions or pneumothorax. Lungs are clear. Mediastinum: Mediastinal contours appear normal. Heart size is normal. Bones and chest wall: No suspicious bony lesions. Overlying soft tissues appear unremarkable. IMPRESSION: No acute pulmonary process. Dictated by: Candace Mota M.D. on 02/09/2017 at 9:22 Approved by: Candace Mota M.D. on 02/09/2017 at 9:24
[2017-02-09 09:30] LABS: INR 1.09 ratio
[2017-02-09 10:07] LABS: Magnesium 1.9 mg/dL (1.6-2.6)
[2017-02-09 10:30] LABS: APPEARANCE,URINE CLEAR (CLEAR,HAZY); COLOR,URINE STRAW (YELLOW)
[2017-02-09 10:31] LABS: OCCULT BLOOD,URINE NEGATIVE (NEGATIVE); UROBILINOGEN,URINE NORMAL (NORMAL)
--- NOTE | 2017-02-09 10:36 | NUR ---
History Pt states she is unaware of a diagnosis of Chronic Diastolic Congestive Heart Failure, states Territory Sales Manager has not given her that diagnosis. Care continues.
--- NOTE | 2017-02-09 15:38 | PCM.PNMED ---
Subjective Date of Service February 09, 2017 Subjective Zuly Adkins is a 76-ear-old lady with a history of paroxysmal atrial fibrillation chronically anticoagulated on warfarin, hypertension, and breast cancer status post left partial mastectomy on 02/05 with temporary hold on warfarin. She presented with the complaint of heart palpitations two hours prior to arrival and admitted for atrial fibrillation with rapid ventricular response. Admitted to [facility] overnight. Today patient is resting comfortably and visiting with a friend. She states that her hands will shake but otherwise she is without symptoms with the RVR. She denies chest pain or pressure, shortness of breath, headache, dizziness or changes in vision. She states that she spontaneously converted to sinus rhythm the last time this happened and that she follows her INR closely. She reports a consistently therapeutic INR and states that her warfarin was held due to her recent mastectomy. Exam Vital Signs Vital Sign - Last Date Time Temp Pulse Resp B/P Pulse Ox O2 Delivery O2 Flow Rate FiO2 02/09/17 05:37 111 02/09/17 03:31 36.7 16 138/77 93 Room Air Intake and Output 02/08/17 02/08/17 02/09/17 Cumulative From/Thru 15:00 23:00 07:00 02/08/17 21:57 - 02/09/17 06:01 Intake Total 200 ml 200 ml Output Total 600 ml 600 ml Balance -400 ml -400 ml Intake Oral 200 ml 200 ml Output Urine Total 600 ml 600 ml # Voids 2 2 Exam General: Well appearing, well developed, elderly female in no acute distress. Appropriately interactive. HEENT: Normocephalic, atraumatic, pupils equal round and reactive to light. Anicteric sclera, mucosa moist/pink. Neck: Supple, nontender, no JVD or lymphadenopathy. Pulmonary: Normal respiratory effort. Lungs clear to auscultation bilaterally with no wheezing, rales or rhonchi. Cardiovascular: Irregularly irregular rhythm, normal S1/S2, no murmurs, rubs or gallops appreciated. Abdomen: Soft, Non-tender, Non-distended, Normoactive bowel tones. Musculoskeletal: Unremarkable. Normal range of motion, no swollen or erythematous joints Extremities: Warm, well perfused, no edema, no cyanosis, no clubbing. Skin: Normal temperature, turgor and texture with no rashes, ulcerations or erythematous areas Neurological: Grossly neurologically intact, no focal motor or sensory deficit. Normal Speech Psychiatric: Normal mood/affect. Alert and oriented to person, place and time. IVs and Medications Medications Reviewed: Medications were reviewed in detail Lab and Diagnostics Laboratory Tests Test 02/08/17 22:15 White Blood Count 11.0th/mm3 (3.8-10.1) Red Blood Count 3.63mil/mm3 (3.90-5.20) Hemoglobin 11.1g/dL (12.0-15.6) Hematocrit 34.1% (35.0-46.0) Mean Corpuscular Volume 93.9fL (81-100) Mean Corpuscular Hemoglobin 30.6pg (27.0-35.0) Mean Corpuscular Hemoglobin Concent 32.6% (32.0-37.0) Red Cell Distribution Width 12.9% (12.3-15.4) Platelet Count 281bil/L (150-400) Neutrophils (%) (Auto) 58.0% (40-74) Lymphocytes (%) (Auto) 27.3% (14-46) Monocytes (%) (Auto) 11.4% (4-12) Eosinophils (%) (Auto) 2.7% (0-5) Basophils (%) (Auto) 0.4% (0-3) Prothrombin Time 11.3sec (8.1-12.5) Prothromb Time International Ratio 1.05ratio Activated Partial Thromboplast Time 25.8sec (22.8-33.0) Sodium Level 139mEq/L (134-144) Potassium Level 3.9mEq/L (3.5-5.2) Chloride Level 99mEq/L (97-108) Carbon Dioxide Level 25mmol/L (18-29) Blood Urea Nitrogen 22mg/dL (8-27) Creatinine 0.95mg/dL (0.57-1.00) Estimat Glomerular Filtration Rate 81mL/min (>59) Glucose Level 132mg/dL (60-99) Calcium Level 9.2mg/dL (8.5-10.1) Magnesium Level 1.5mg/dL (1.6-2.6) Total Bilirubin 0.2mg/dL (0.0-1.2) Aspartate Amino Transf (AST/SGOT) 14U/L (0-50) Alanine Aminotransferase (ALT/SGPT) 8U/L (0-32) Alkaline Phosphatase 105U/L (25-165) Troponin T 0.010ug/L (0.0-0.011) Pro-B-Type Natriuretic Peptide 4734pg/mL (0-738) Total Protein 6.8g/dL (6.4-8.4) Albumin 3.6g/dL (3.4-5.0) Thyroid Stimulating Hormone (TSH) 1.440uIU/mL (0.450-4.500) Free Thyroxine 1.38ng/dL (0.82-1.77) Hold Estevez Top Tube Received (Received) Result Diagram: 02/08/17221402/08/17 221 X-Rays, CTs and MRIs (02/09/17) X-RAY CHEST ONE VIEW, PORTABLE IMPRESSION: No acute pulmonary process. Dictated and approved by: Candace Mota M.D. on 02/09/2017 at 9:22 . Assessment & Plan Zuly Adkins is a 76-ear-old lady with a history of paroxysmal atrial fibrillation chronically anticoagulated on warfarin, hypertension, and breast cancer status post left partial mastectomy on 02/05. She presented with the complaint of heart palpitations two hours prior to arrival and admitted for atrial fibrillation with rapid ventricular response. Atrial Fibrillation with rapid ventricular response, acute on chronic. Present on admission. Active - Patient has been in sinus. Unclear etiology for rapid ventricular repsonse. Possibly secondary to uncontrolled hypertension, recent surgery, missed medication dose, stress, or underlying ischemia. - INR subtherapeutic, 1.05. Warfarin was held for surgery (02/05) and has been recently restarted. - TSH is within normal, EKG without acute ischemic changes, troponin negative x2. - Continue home metoprolol tartrate, 25mg twice daily for rate control. Titrate off diltiazem drip. - Echocardiogram, pending. - Continue heparin drip and bridge to warfarin (dosed per Pharmacy) Hypertension, chronic. Present on admission. Presumed stable. - Patient reports symptomatic hypertensive emergency in the past. Currently normotensive. - Continue metoprolol, as above. - Holding triamterene/HCTZ due to elevated uric acid. Diastolic heart failure, chronic. Present on admission. Active. - Patient denies diagnosis of heart failure and reports an EF of 67% on prior echocardiogram (patient uncertain of dates). - Chart review revealed an Echocardiogram on 02/12/2015 that shows an EF of 60-65 % and a restrictive filling pattern of the left ventricle consistent with significantly elevated filling pressures. - Echocardiogram, pending - Continue medications as above Gastroesophageal reflux disease, chronic. Present on admission. Presumed stable. - Convert home omeprazole to pantoprazole. Hypothyroidism, chronic. Present on admission. Presumed stable. - Continue home levothyroxine, 88 mcg daily - TSH normal range Gout, chronic. Present on admission. Presumed stable. - Uric acid 7.2 - Continue Colchicine 0.6 mg bid as needed - Consider allopurinol History of left-sided lobular carcinoma in situ of the breast. Present on admission. Presumed stable. - Patient is status post partial left mastectomy on 02/05/17. - Acetaminophen as needed for mild pain/fever/headache - Bowel regimen as needed - Antiemetic as needed Disposition: Patient will likely discharge home in 1-2 days, pending echocardiogram results and rate control. Resuscitation Status: CPR: Attempt Resuscitation Attending Statement The patient was seen and examined together with Dr. Fabian on 02/09/2017 and I agree with the history, exam and plan as outlined in the note above. . Gina Fabian DO February 09, 2017 08:42 Rob Rosen MD February 09, 2017 16:30
--- NOTE | 2017-02-09 17:09 | NUR ---
Case Management: Observation status D: Attempted to explain the OLVERA. Pt very angry, states she refuses to be observation status, that she told the ED MD that she had to be IP status. I explained about Medicare criteria, that a secondary reviewer (ADOLPH) had reviewed the chart, and that observation was the appropriate status. She repeatedly says she knows Medicare will not pay for observation, that she watches the news. I explained multiple times that her Medicare Part B and her secondary would pay for observation status. 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 I tried to explain that Medicare criteria changes yearly if not more often. I provided her a copy of the OLVERA and Medicare self administered medication information. Pt refuses to sign OLVERA, and she then told me to leave the room. She did want me to make a note in her chart that she is calling her featheredger and reducer machine and Medicare. I did tell her that the phone number for Medicare is on the OLVERA paperwork. I did tell the pt's RN and the friend who is at her bedside that if the pt does have any questions, I am happy to return and answer them. Addendum: 02/09/17 at 1755 by JUAN FRANKLIN SS central office supervisor Alexandra Levine and pt's MD Dr Fabian also made aware of how angry pt is and why. Pt did also ask about who the QIO was, and I told her FREDERIC.
--- NOTE | 2017-02-09 19:02 | DRSVH ---
[facility] [address] [place] [address] Echocardiogram Report Name: JONO ALLEN Denis e: 02/09/2017 Height : 65 in Hospital Exam Location: [facility] Weight : 222 lb Gender: Female BSA: 2 .1 m2 : 1940 Age: 76 yrs BP: 13 8/77 mmHg Reason For Study: A-FIB. Ordering Physician: HOSPITALIST [facility] Performed By: Narda Hernandez Referring Physician: DR. MERINO, DR. CHAVEZ Interpretation Summary The left ventricle is normal in size. Left ventricular systolic function is normal without focal wall motion abnormalities. The ejection fraction is estimated to be 60-65%. LVEF has not changed since prior study. The right ventricle is normal in size and function. Right ventricular systolic pressure is estimated to be 23 mmHg plus the clinically estimated CVP which cannot be estimated on this exam. The left atrium is moderately dilated. The right atrium is mildly dilated. There is mild aortic stenosis. The calculated aortic valve area is 1.5 cm2. There has been no significant change since the previous study. There is no other significant valvular heart disease. The aortic root is normal size. Procedure: A two-dimensional transthoracic echocardiogram with color flow and Doppler was performed. The study quality was technically adequate. The subcostal views were not obtained due to no visualization. Difficult apical window due to recent left breast surgery. Comparison is made with the echocardiogram of 02-12-2015. The patient was in atrial fibrilation during the exam. Left Ventricle: The left ventricle is normal in size. Left ventricular wall thickness is mildly increased. The LVOT diameter is 2.1 cm. Left ventricular systolic function is normal without focal wall motion abnormalities. The ejection fraction is estimated to be 60-65%. Diastolic function could not be accurately assessed due to atrial fibrillation. Right Ventricle: The right ventricle is normal in size and function. Atria: The left atrium is moderately dilated. The right atrium is mildly dilated. There is no Doppler evidence for an atrial septal defect. Mitral Valve: There is mild mitral annular calcification. The mitral valve leaflets appear normal. There is no evidence of stenosis, fluttering, or prolapse. There is trace mitral regurgitation. Aortic Valve: The aortic valve is trileaflet. The aortic valve is mildly calcified. There is mild aortic stenosis. There has been no significant change since the previous study. The calculated aortic valve area is 1.5 cm2. The peak aortic velocity is 2.8 m/sec. The aortic valve mean gradient is 17 mmHg. The peak aortic velocity on the previous exam was 2.3 m/sec. No aortic regurgitation is present. Tricuspid Valve: The tricuspid valve leaflets are thin and pliable. Right ventricular systolic pressure is estimated to be 23 mmHg plus the clinically estimated CVP which cannot be estimated on this exam. There is a trace or physiologic amount of tricuspid regurgitation. Pulmonic Valve: The pulmonic valve is not well seen, but is grossly normal. There is no pulmonic valvular regurgitation. There is no other significant valvular heart disease. Great Vessels: The aortic root is normal size. The dimensions of the ascending aorta are normal. The pulmonary artery is normal size. The inferior vena cava was not visualized. Pericardium/ Pleura There is no pericardial effusion. There is no pleural effusion. MMode/2D Measurements & Calculations LVIDd: 4.4 cm LA dimension: 4.2 cm RA long axis LVOT diam: 2.1 cm LVIDs: 2.9 cm AoV Opening FS: 33.9 % LA A2 area: 26.7 cm RA area IVSd: 1.2 cm LA A4 area: 28.2 cm Ao root diam LVPWd: 0.98 cm LA length (vol) : 22.5 cm RA vol Aortic Jxn: 2.7 cm LA vol: 99.5 ml : 76.8 ml asc Aorta Diam LA vol index RA : 37.1 mm2 Ao Arch Diam (Prox : 48.1 ml/m2 Trans): 3.0 cm LV gar. diameter/BSA LV sys. diameter/BSA RVD2 (mid) (cm/m^2): 2.1 (cm/m^2): 1.4 : 3.7 cm Doppler Measurements & Calculations Ao V2 max MV E max rubén Med Peak E' Rubén TR max rubén : 277.2 cm/sec : 103.7 cm/sec : 239.0 cm/sec Ao max PG E/E' med: 10.2 TR max P.9 mmHg : 30.9 mmHg Lat Peak E' Rubén PA V2 max: 94.0 cm/sec Ao mean PG PA mean P.9 mmHg : 17.3 mmHg E/E' lat: 8.8 PA Accel Time LVOT Max Rubén E/e' average: 9.5 : 0.09 sec : 103.5 cm/sec CHARLEEN(I,D): 1.5 cm sev ratio Ao V2 mean LV V1 max PG PA V2 mean CHARLEEN indexed to BSA : 198.2 cm/sec : 65.5 cm/sec (cm^2/m^2): 0.71 Ao V2 VTI: 49.4 cmLV V1 VTI: 20.7 cm CHARLEEN(V,D): 1.3 cm2 Reading Physician:SHAISTA
[2017-02-09] MEDS: Heparin 5,000 Unit/mL Inj IVPUSH PRN (21:20)
[2017-02-10] VITALS (9 sets, daily range): BP systolic 114–146; BP diastolic 52–118; PULSE 83–112; RESP 17–23; O2SAT 94–97
[2017-02-10] MEDS: Heparin 5,000 Unit/mL Inj IVPUSH PRN (01:47)
[2017-02-10] MEDS: Heparin 25K Unit/500mL 0.45 NS 25,000 UNIT in IV Premix 1 EACH IV SCH (06:04)
[2017-02-10 06:05] LABS: BASOPHILS % (AUTO) 0.3 % (0-3); EOSINOPHILS % (AUTO) 3.7 % (0-5); MONOCYTES % (AUTO) 8.3 % (4-12); Mean Corpuscular Hemoglobin 30.4 pg (27.0-35.0); Mean Corpuscular Volume 94.6 fL (81-100); NEUTROPHILS % (AUTO) 54.6 % (40-74); Platelet Count 262 bil/L (150-400)
--- NOTE | 2017-02-10 06:25 | NUR ---
Tele/Desat Pt tele Afib w/ rate maintaining mostly around 90s-110s, other vitals stable, pt had no c/o pain or symptoms. Pt appeared to sleep well most of the night between care interventions. Was noted to desat on a few occasions to high 80s though did not stay low. Pt had occasional small periods of interrupted breathing and was noted to snore, was placed on 1-2L NC which seemed to help keep pt sats WNL more consistently. While awake sats maintained mid 90s on RA.
[2017-02-10 07:06] LABS: INR 1.06 ratio
--- NOTE | 2017-02-10 08:15 | PCM.PNMED ---
Subjective Date of Service February 10, 2017 Subjective Hosp day 2. Transitioned off Dilt ggt overnight, and continues to be in the 90-110's, but denies CP, SOB, palpitations. She has not been OOB except to commode at bedside. Complains of dry mouth and frustration with admission status (states she has medical background, and doesn't understand why she does not meet inpatient criteria). Reports constipated following mastectomy, but had capfull of MoM which resulted in "loose" stool, but denies diarrhea, dysuria, or pain at her surgical site. ROS otherwise neg. Exam Vital Signs Vital Sign - Last Date Time Temp Pulse Resp B/P Pulse Ox O2 Delivery O2 Flow Rate FiO2 02/10/17 05:12 112 02/10/17 04:55 36.6 17 114/70 97 Nasal Cannula 2.00 Intake and Output 02/09/17 02/09/17 02/10/17 Cumulative From/Thru 15:00 23:00 07:00 02/08/17 21:57 - 02/10/17 06:23 Intake Total 1240 ml 1109 ml 2549 ml Output Total 750 ml 650 ml 2000 ml Balance 490 ml 459 ml 549 ml Intake Oral 1000 ml 700 ml 1900 ml IV Total 240 ml 409 ml 649 ml Output Urine Total 750 ml 650 ml 2000 ml # Voids 3 3 8 # Bowel Movements 2 2 Exam General: Well appearing, well developed, elderly female in no acute distress. Appropriately interactive. HEENT: Normocephalic, atraumatic, pupils equal round and reactive to light. Anicteric sclera, mucosa somewhat dry/pink. Neck: Supple, nontender, no JVD or lymphadenopathy. Pulmonary: Normal respiratory effort. Lungs clear to auscultation bilaterally with no wheezing, rales or rhonchi. Cardiovascular: Irregularly irregular rhythm on monitor, normal S1/S2, no murmurs appreciated, rubs or gallops appreciated. Radial and post tib present and equal. Abdomen: Soft, Non-tender, Non-distended, Normoactive bowel tones. Musculoskeletal: Unremarkable. Normal range of motion, no swollen or erythematous joints Extremities: Warm, well perfused, no edema, no cyanosis, no clubbing. Skin: Normal temperature, turgor and texture with no rashes, ulcerations or erythematous areas Neurological: Grossly neurologically intact, no focal motor or sensory deficit. Normal Speech Psychiatric: Normal mood/affect. Alert and oriented to person, place and time. Lab and Diagnostics Result Diagram: 02/10/17 0550 02/10/17 0550 X-Rays, CTs and MRIs (02/09/17) X-RAY CHEST ONE VIEW, PORTABLE IMPRESSION: No acute pulmonary process. Dictated and approved by: Candace Mota M.D. on 02/09/2017 at 9:22 . Assessment & Plan Zuly Adkins is a 76-ear-old lady with a history of paroxysmal atrial fibrillation chronically anticoagulated on warfarin, hypertension, and breast cancer status post left partial mastectomy on 02/05. She presented with the complaint of heart palpitations two hours prior to arrival and admitted for atrial fibrillation with rapid ventricular response. Hospital day 2. Atrial Fibrillation with rapid ventricular response, acute on chronic. Present on admission. Active - Patient has been in sinus. Unclear etiology for rapid ventricular repsonse. Possibly secondary to uncontrolled hypertension, recent surgery, missed medication dose, stress, or underlying ischemia. - INR subtherapeutic, 1.05. Warfarin was held for surgery (02/05) and has been recently restarted. - TSH is within normal, EKG without acute ischemic changes, troponin negative x2. - Continue home metoprolol tartrate, 25mg twice daily for rate control ( switched to long-acting twice a day dosing today). Titrated off diltiazem drip overnight. - Echocardiogram, unremarkable. - Continue heparin drip, stop warfarin, anticipate switching to Eliquis Hypertension, chronic. Present on admission. Presumed stable. - Patient reports symptomatic hypertensive emergency in the past. Currently normotensive. - Continue metoprolol, as above. - Holding triamterene/HCTZ due to elevated uric acid. Diastolic heart failure, chronic. Present on admission. Active. - Patient denies diagnosis of heart failure and reports an EF of 67% on prior echocardiogram (patient uncertain of dates). - Chart review revealed an Echocardiogram on 02/12/2015 that shows an EF of 60-65 % and a restrictive filling pattern of the left ventricle consistent with significantly elevated filling pressures. - Echocardiogram, pending - Continue medications as above Gastroesophageal reflux disease, chronic. Present on admission. Presumed stable. - Convert home omeprazole to pantoprazole. Hypothyroidism, chronic. Present on admission. Presumed stable. - Continue home levothyroxine, 88 mcg daily - TSH normal range Gout, chronic. Present on admission. Presumed stable. - Uric acid 7.2 - Continue Colchicine 0.6 mg bid as needed - Consider allopurinol History of left-sided lobular carcinoma in situ of the breast. Present on admission. Presumed stable. - Patient is status post partial left mastectomy on 02/05/17. - Acetaminophen as needed for mild pain/fever/headache - Bowel regimen as needed - Antiemetic as needed Patient is admitted under inpatient status with expected length of stay greater than 2 midnights due to severity of presenting symptoms, risk of adverse event, and complexity of treatment plan. Disposition: Patient will likely discharge home in 1-2 days. Pain Evaluation: Adequate Pain Control Resuscitation Status: CPR: Attempt Resuscitation Attending Statement The patient was seen and examined together with Dr. Castañeda on 02/10/2017 and I agree with the history, exam and plan as outlined in the note above. . Agustin Paez DO February 10, 2017 08:15 Rob Rosen MD February 11, 2017 14:38
[2017-02-10] MEDS: Pantoprazole 40 mg ER24 Tablet PO SCH (08:31)
--- NOTE | 2017-02-10 09:31 | PCM.PHAPRO ---
Progress Palpitations Date February 09-February 10-January INR 1.05 1.05 1.06 INR change 0.01 Warf Dose NONE 5 5 Andry Weaver Pharm.D February 10, 2017 09:31
[2017-02-10] MEDS ORDERED: DABI150C PO (11:43)
--- NOTE | 2017-02-10 13:59 | NUR ---
Social Work: Continued Discharge Planning D: Pt discussed in am rounds. Pt is now listed as observation. Provider is asking for clarification about this as pt expressed frustration about observation status. UR RN is reviewing pt's current clinical status to determine if she meets for inpatient status. UR RN has spoken to pt about observation status. RN TELEPHONE TRIAGE has also spoken with patient about this and provided her with patient advocate contact information along with Patient Complaint Hotline information. RN TELEPHONE TRIAGE has left message for patient advocate as well to provide patient's information and to request follow up with patient on Saturday. Provider is requesting RN TELEPHONE TRIAGE fax prescription for Pradaxa to patient's preferred pharmacy ([facility] in [place]) to obtain co-pay amount. Per [facility], the patient's cost is $44 after insurance coverage. Provider and patient were notified of this. Patient would like to speak to provider. Provider notified. A: Pt who is I at baseline and lives at home with her son. P: Evolving; anticipate the patient to discharge home via POV once medically stable. RN TELEPHONE TRIAGE to continue to follow HENNY Augustine
--- NOTE | 2017-02-10 17:53 | NUR ---
Inpatient status effective today, [facility] signed.
--- NOTE | 2017-02-10 18:26 | NUR ---
Pulse Pts. pulse this afternoon dropped from about 120 to 100 and he body acted to the decrease. Pt. states feeing some nausea, clammy, and slight diaphoretic. Cardiology waled in when this happened and said it was minor. Pt. has had no other episode of this happening again on this shift.
[2017-02-10] MEDS: MeTOProlol XL 25 mg ER24 Tablet PO SCH (20:48)
[2017-02-11] VITALS (8 sets, daily range): BP systolic 97–131; BP diastolic 48–78; PULSE 80–127; RESP 18–22; O2SAT 94–97
[2017-02-11 02:40] LABS: Mean Corpuscular Volume 93.5 fL (81-100)
[2017-02-11 02:55] LABS: INR 1.06 ratio
[2017-02-11] MEDS: Heparin 5,000 Unit/mL Inj IVPUSH PRN (03:12)
[2017-02-11] MEDS: Heparin 25K Unit/500mL 0.45 NS 25,000 UNIT in IV Premix 1 EACH IV SCH (03:18)
--- NOTE | 2017-02-11 07:34 | NUR ---
Tele/Pain Pt tele Afib 90s-110s, no c/o chest pain, other vitals stable. Pt given tylenol x1 for 7/10 neck/shoulder pain which was effective as pt returned to sleep.
[2017-02-11] MEDS: Pantoprazole 40 mg ER24 Tablet PO SCH (08:38)
[2017-02-11] MEDS: MeTOProlol XL 25 mg ER24 Tablet PO SCH ×2 (08:38→19:57)
[2017-02-11] MEDS ORDERED: APIX5TAB PO (10:58)
--- NOTE | 2017-02-11 14:56 | PCM.PNMED ---
Subjective Date of Service February 11, 2017 Subjective Zuly Adkins is a 76-ear-old lady with a history of paroxysmal atrial fibrillation chronically anticoagulated on warfarin, hypertension, and breast cancer status post left partial mastectomy on 02/05 with temporary hold on warfarin. She presented with the complaint of heart palpitations two hours prior to arrival and admitted for atrial fibrillation with rapid ventricular response. No acute events overnight. Patient is sitting in bed and appears comfortable. She states that she feels a bit weak and has not had a bowel movement but otherwise reports doing well. She states that she has not had a bowel movement because she hasn't been eating much. She denies abdominal pain, nausea, or vomiting. Additionally she denies dizziness, headache, tremors or chest pain. Exam Vital Signs Vital Sign - Last Date Time Temp Pulse Resp B/P Pulse Ox O2 Delivery O2 Flow Rate FiO2 02/11/17 03:37 36.8 107 18 117/68 94 Room Air 02/10/17 04:55 2.00 Intake and Output 02/10/17 02/10/17 02/11/17 Cumulative From/Thru 15:00 23:00 07:00 02/08/17 21:57 - 02/11/17 04:57 Intake Total 286 ml 700 ml 3535 ml Output Total 900 ml 2900 ml Balance 286 ml -200 ml 635 ml Intake Oral 700 ml 2600 ml IV Total 286 ml 935 ml Output Urine Total 900 ml 2900 ml # Voids 3 11 # Bowel Movements 2 Exam General: Well appearing, well developed, elderly female in no acute distress. Appropriately interactive. HEENT: Normocephalic, atraumatic, pupils equal round and reactive to light. Anicteric sclera, mucosa moist/pink. Neck: Supple, nontender, no JVD or lymphadenopathy. Pulmonary: Normal respiratory effort. Lungs clear to auscultation bilaterally with no wheezing, rales or rhonchi. Cardiovascular: Irregularly irregular rhythm, normal S1/S2, no murmurs, rubs or gallops appreciated. Abdomen: Soft, Non-tender, Non-distended, Normoactive bowel tones. Musculoskeletal: Unremarkable. Normal range of motion, no swollen or erythematous joints Extremities: Warm, well perfused, no edema, no cyanosis, no clubbing. Skin: Normal temperature, turgor and texture with no rashes, ulcerations or erythematous areas Neurological: Grossly neurologically intact, no focal motor or sensory deficit. Normal Speech Psychiatric: Normal mood/affect. Alert and oriented to person, place and time. IVs and Medications Medications Reviewed: Medications were reviewed in detail Lab and Diagnostics Laboratory Tests Test 02/10/17 12:20 02/10/17 18:27 02/11/17 02:15 Activated Partial Thromboplast Time 56.1sec (22.8-33.0) 53.7sec (22.8-33.0) 45.5sec (22.8-33.0) White Blood Count 19.6th/mm3 (3.8-10.1) Red Blood Count 3.84mil/mm3 (3.90-5.20) Hemoglobin 11.9g/dL (12.0-15.6) Hematocrit 35.9% (35.0-46.0) Mean Corpuscular Volume 93.5fL (81-100) Mean Corpuscular Hemoglobin 31.0pg (27.0-35.0) Mean Corpuscular Hemoglobin Concent 33.1% (32.0-37.0) Red Cell Distribution Width 12.7% (12.3-15.4) Platelet Count 292bil/L (150-400) Prothrombin Time 11.4sec (8.1-12.5) Prothromb Time International Ratio 1.06ratio Sodium Level 134mEq/L (134-144) Potassium Level 4.3mEq/L (3.5-5.2) Chloride Level 95mEq/L (97-108) Carbon Dioxide Level 24mmol/L (18-29) Blood Urea Nitrogen 22mg/dL (8-27) Creatinine 0.80mg/dL (0.57-1.00) Estimat Glomerular Filtration Rate 99mL/min (>59) Glucose Level 119mg/dL (60-99) Calcium Level 9.3mg/dL (8.5-10.1) Microbiology 02/09/17 Stool Occult Blood (DARON) - positive Result Diagram: 02/11/1721402/11/17214 X-Rays, CTs and MRIs (02/09/17) X-RAY CHEST ONE VIEW, PORTABLE IMPRESSION: No acute pulmonary process. Dictated and approved by: Candace Mota M.D. on 02/09/2017 at 9:22 . Cardiac Echo Impressions (02/09/17) ECHOCARDIOGRAM REPORT Interpretation Summary The left ventricle is normal in size. Left ventricular systolic function is normal without focal wall motion abnormalities. The ejection fraction is estimated to be 60-65%. LVEF has not changed since prior study. The right ventricle is normal in size and function. Right ventricular systolic pressure is estimated to be 23 mmHg plus the clinically estimated CVP which cannot be estimated on this exam. The left atrium is moderately dilated. The right atrium is mildly dilated. There is mild aortic stenosis. The calculated aortic valve area is 1.5 cm2. There has been no significant change since the previous study. There is no other significant valvular heart disease. The aortic root is normal size. Assessment & Plan Zuly Adkins is a 76-ear-old lady with a history of paroxysmal atrial fibrillation chronically anticoagulated on warfarin, hypertension, and breast cancer status post left partial mastectomy on 02/05. She presented with the complaint of heart palpitations two hours prior to arrival and admitted for atrial fibrillation with rapid ventricular response. Hospital day Atrial Fibrillation with rapid ventricular response, acute on chronic. Present on admission. Active - Patient has been in sinus. Unclear etiology for rapid ventricular repsonse. Possibly secondary to uncontrolled hypertension, recent surgery, missed medication dose, stress, or underlying ischemia. - INR subtherapeutic, 1.05. Warfarin was held for surgery (partial left mastectomy on 02/05) and had been recently restarted. INR subtherapeutic and patient started on Heparin drip. - TSH is within normal, EKG without acute ischemic changes, troponin negative x2. - Continue metoprolol succinate, 25mg twice daily for rate control. (patient previously on metoprolol tartrate 25mg bid). - Echocardiogram, unremarkable. - Continue heparin drip, stop warfarin, anticipate switching to Eliquis Leukocytosis, acute. Not present on admission. Active. -Uncertain etiology. Patient with no signs/symptoms consistent with infection. -Will repeat CBC and procalcitonin, monitor clinically for signs of infection. Hypertension, chronic. Present on admission. Presumed stable. - Patient reports symptomatic hypertensive emergency in the past. Currently normotensive. - Continue metoprolol, as above. - Holding triamterene/HCTZ due to elevated uric acid. Diastolic heart failure, chronic. Present on admission. Active. - Patient denies diagnosis of heart failure and reports an EF of 67% on prior echocardiogram (patient uncertain of dates). - Chart review revealed an Echocardiogram on 02/12/2015 that shows an EF of 60-65 % and a restrictive filling pattern of the left ventricle consistent with significantly elevated filling pressures. - Echocardiogram, as above - Continue medications as above Gastroesophageal reflux disease, chronic. Present on admission. Presumed stable. - Convert home omeprazole to pantoprazole. Hypothyroidism, chronic. Present on admission. Presumed stable. - Continue home levothyroxine, 88 mcg daily - TSH normal range Gout, chronic. Present on admission. Presumed stable. 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 Present on admission. Presumed stable. - Patient is status post partial left mastectomy on 02/05/17. High -risk medication: IV heparin - Acetaminophen as needed for mild pain/fever/headache - Bowel regimen as needed - Antiemetic as needed Disposition: Patient will likely discharge home in 1-2 days, pending transition to oral anticoagulation and further workup of leukocytosis. Resuscitation Status: CPR: Attempt Resuscitation Attending Statement The patient was seen and examined together with Dr. Fabian on 02-11-17 and I agree with the history, exam and plan as outlined in the note above. Gina Fabian DO February 11, 2017 08:13 Adilia Crowell MD February 12, 2017 16:22
--- NOTE | 2017-02-11 16:19 | NUR ---
Social Work Note: Continued Discharge Planning Data& Assessment: OMER received order from to run Eliquist prescription to pt preferred pharmacy [facility] in [place]. Per Pharmacist, this anticoagulant would require a prior auth complete from . notified. SW to continue to follow for needs. Plan: Anticipated discharge home via POV when medically ready. SW to continue to follow for needs. HENNY Villasenor
--- NOTE | 2017-02-11 16:36 | NUR ---
spiritual care: pt request visit attempt/ pt sleeping, did not rouse to voice
--- NOTE | 2017-02-11 18:42 | NUR ---
Pain P- patient complained of pain to low back/sciatic I-PO 650mg Tylenol and Kpad heating pad E-Pt able to sleep, and states that pain is reduced from 4 to 1. S-bed in low position and locked, call light within reach, 2 bedrails up/2 down. Non slip socks on patient.
--- NOTE | 2017-02-12 00:59 | NUR ---
Heparin/Cardiac Patient remains on heparin gtt, pump malfunction and pump shut off sometime between patient assessments, pump infusing at 2100 and Adalberto from lab stated it was off when he went into draw the 2220 PTT Heparin, pump restarted and notified, orders to draw next PTT Heparin in AM and continue infusing at the last set rate, HR A-Fib and rate controled 90-110's, denies chest pain, up to commode multiple times to void, incontinence at times when getting up OOB. VSS and denies pain, will continue to monitor.
[2017-02-12] MEDS: Heparin 25K Unit/500mL 0.45 NS 25,000 UNIT in IV Premix 1 EACH IV SCH (02:15)
[2017-02-12 03:41] VITALS: BP 114/77; PULSE 86; RESP 20; O2SAT 96
[2017-02-12 04:17] LABS: BASOPHILS % (AUTO) 0.3 % (0-3); EOSINOPHILS % (AUTO) 3.6 % (0-5); MONOCYTES % (AUTO) 13.1 % (4-12); Mean Corpuscular Hemoglobin 30.6 pg (27.0-35.0); Mean Corpuscular Volume 93.1 fL (81-100); NEUTROPHILS % (AUTO) 56.9 % (40-74); Platelet Count 253 bil/L (150-400)
[2017-02-12 04:37] LABS: INR 1.1 ratio
[2017-02-12 09:04] VITALS: BP 122/69; PULSE 101; RESP 22; O2SAT 96
[2017-02-12] MEDS: MeTOProlol XL 25 mg ER24 Tablet PO SCH (09:07)
[2017-02-12] MEDS: Pantoprazole 40 mg ER24 Tablet PO SCH (09:07)
[2017-02-12 10:57] VITALS: PULSE 95
--- NOTE | 2017-02-12 12:12 | PCM.DIMED ---
Gina Fabian DO 02/12/17 1212: Discharge Instructions Date of Service February 12, 2017 Dates of Hospitalization February 09, 2017 at 02:41 Discharge Diagnosis Discharge Diagnosis During this hospital stay you were treated for Atrial Fibrillation with an uncontrolled heart rate as well as continued on your home medications for hypertension, hypothyroidism and gastroesophageal reflux. Medication Instructions Additional med instructions We have increased your home metoprolol XL dose to 37.5mg twice daily. Please discuss this change with your primary care provider as well as your Special Warfare Boat Operator and check your heart rate several times a day as we discussed. Stop taking warfarin. Start Eliquis Diet Discharge Diet: Heart Healthy Activity Discharge Activity: No restrictions Call your provider Call your provider for: Fever or Chills, Shortness of breath, Bleeding, Chest pain, Weakness (unilateral), Other (If you develop any new or concerning symptoms contact your primary care provider.) Patient Instructions Patient Instructions As we discussed, check your pulse throughout the day and followup with your Special Warfare Boat Operator, Dr. Hebert within the next week to discuss this hospital stay and medication change. The metroprolol XL dose was increased to 37.5mg twice daily (1 and 1/2 tablets. Tablets are 25mg). If your heart rate is below 60, take one 25mg tablet. Start taking the Eliquis and stop taking warfarin, you will need to discuss this change with your Special Warfare Boat Operator as well. It is important that your followup with your primary care provider within the next week to discuss medication changes, heart rate and any concerns you may have. . Follow-up plan Andry Seymour MD [facility] [address] [place] [address] Manav Hebert Jr., MD [facility] - Cardiology [address] [place] [address] [address] [place] [address] . Follow-up Provider: Andry Seymour MD Follow-up with PCP in: 1 week Provider: Manav Hebert MD Follow-up in: 1 week Adilia Crowell MD 02/12/17 2528: Discharge Instructions Attending's Statement The patient was seen and examined together with Dr. Fabian on 02-11-17 and I agree with the history, exam and plan as outlined in the note above. Gina Fabian DO February 12, 2017 12:12 Adilia Crowell MD February 12, 2017 16:58
[2017-02-12] MEDS ORDERED: METO25TA99 PO (12:14)
--- NOTE | 2017-02-12 12:56 | PCM.DC.MED ---
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 Dictated and approved by: Candace Mota M.D. on 02/09/2017 at 9:22 . ECG 12 Lead Atrial fibrillation with rapid ventricular response, rate of 122. Cardiac Echo Impression (02/09/17) ECHOCARDIOGRAM REPORT Interpretation Summary The left ventricle is normal in size. Left ventricular systolic function is normal without focal wall motion abnormalities. The ejection fraction is estimated to be 60-65%. LVEF has not changed since prior study. The right ventricle is normal in size and function. Right ventricular systolic pressure is estimated to be 23 mmHg plus the clinically estimated CVP which cannot be estimated on this exam. The left atrium is moderately dilated. The right atrium is mildly dilated. There is mild aortic stenosis. The calculated aortic valve area is 1.5 cm2. There has been no significant change since the previous study. There is no other significant valvular heart disease. The aortic root is normal size. Brief History Per admission history and physical. Bassem Nunez MD on 02/09/17 194 Zuly Adkins is a 76 y.o. female with Non sustained Atrial fibrillation, Left Breast Lobular carcinoma in situ, Hypertension, Hypothyroidism who presents to [facility] emergency department via EMS c/o rapid palpitations onset 2 hours prior to arrival. Patient was watching TV during onset. She felt some chest tightness and pain around her neck area. Other associated symptoms includes nausea but no vomiting. Denies any dizziness. Symptoms persisted with no reliving factors and exacerbated by movement. She called 911 EMS reports that pt had HR from 60-120 en route. Given IV Diltiazem Patient has history of Paroxysmal Atrial fibrillation and currently on Coumadin and Metoprolol bid. Pt had a recent breast biopsy, which was carcinoma in situ but Dr Thomas was able to resect it all. Case discussed with Dr Wright, Diltiazem drip started and continued. Patient will be admitted . Hospital Course Zuly Adkins is a 76-ear-old lady with a history of paroxysmal atrial fibrillation chronically anticoagulated on warfarin, hypertension, and breast cancer status post left partial mastectomy on 02/05. She presented with the complaint of heart palpitations two hours prior to arrival and admitted for atrial fibrillation with rapid ventricular response. Atrial Fibrillation with rapid ventricular response, acute on chronic. Present on admission. Treated. - Patient had been in sinus. Unclear etiology for rapid ventricular response. Possibly secondary to uncontrolled hypertension, recent surgery, missed medication dose, stress, or underlying ischemia. - INR subtherapeutic, 1.05 at presentation and patient started on Heparin drip. Warfarin was held for surgery (partial left mastectomy on 02/05) and had been recently restarted. - TSH within normal, EKG without acute ischemic changes, and troponin negative x2. - Patient received metoprolol succinate, 25mg twice daily for rate control. ( patient previously on metoprolol tartrate 25mg bid). Increased to 37.5mg twice daily prior to discharge as heart rate consistently in low 100s to 120s with low in the 80s. - Echocardiogram, as above. - Patient discharged with coupon for 30day supply of Eliquis, she is to followup with her primary Executive Services Administrator regarding intermediate frame tender anticoagulation. Leukocytosis, acute. Not present on admission. Improved -Uncertain etiology. Clinically patient without signs or symptoms of infection and procalcitonin as well as WBC trending down. -Recommend followup with primary care provider within the next week, possibly repeat CBC. Diastolic heart failure, chronic. Present on admission. Active. - Patient denies diagnosis of heart failure and reports an EF of 67% on prior echocardiogram (patient uncertain of dates). - Chart review revealed an Echocardiogram on 02/12/2015 that shows an EF of 60-65 % and a restrictive filling pattern of the left ventricle consistent with significantly elevated filling pressures. - Echocardiogram, as above - Patient is to followup with Cardiology in the next 1-2 weeks. - Patient received metoprolol as above, and triamterene/HCTZ resumed at discharged. (initially held due to elevated uric acid) Hypertension, chronic. Present on admission. Presumed stable. - Patient reported symptomatic hypertensive emergency in the past, normotensive prior to discharge. - Patient was continued no metoprolol, as above. - Held triamterene/HCTZ due to elevated uric acid. Gastroesophageal reflux disease, chronic. Present on admission. Presumed stable. - Patient's home omeprazole was converted to pantoprazole. Hypothyroidism, chronic. Present on admission. Presumed stable. - TSH was within the normal range and patient was continued on home levothyroxine, 88 mcg daily Gout, chronic. Present on admission. Presumed stable. 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 Present on admission. Presumed stable. - Patient is status post partial left mastectomy on 02/05/17. Exam Vital Signs (Last) Date Time Temp Pulse Resp B/P Pulse Ox O2 Delivery O2 Flow Rate FiO2 02/12/17 10:57 95 02/12/17 09:04 37.0 22 122/69 96 Room Air 02/10/17 04:55 2.00 Exam General: Well appearing, well developed, elderly female in no acute distress. Appropriately interactive. HEENT: Normocephalic, atraumatic, pupils equal round and reactive to light. Anicteric sclera, mucosa moist/pink. Neck: Supple, nontender, no JVD or lymphadenopathy. Pulmonary: Normal respiratory effort. Lungs clear to auscultation bilaterally with no wheezing, rales or rhonchi. Cardiovascular: Irregularly irregular rhythm, normal S1/S2, no murmurs, rubs or gallops appreciated. Abdomen: Soft, Non-tender, Non-distended, Normoactive bowel tones. Musculoskeletal: Unremarkable. Normal range of motion, no swollen or erythematous joints Extremities: Warm, well perfused, no edema, no cyanosis, no clubbing. Skin: Normal temperature, turgor and texture with no rashes, ulcerations or erythematous areas Neurological: Grossly neurologically intact, no focal motor or sensory deficit. Normal Speech Psychiatric: Normal mood/affect. Alert and oriented to person, place and time Test 02/08/17 22:15 02/09/17 08:45 02/09/17 08:58 02/09/17 09:00 Pro-B-Type Natriuretic Peptide 4734pg/mL (0-738) Thyroid Stimulating Hormone (TSH) 1.440uIU/mL (0.450-4.500) Free Thyroxine 1.38ng/dL (0.82-1.77) Hold Estevez Top Tube Received (Received) Magnesium Level 1.9mg/dL (1.6-2.6) Uric Acid 7.2mg/dL (2.6-7.2) Urine Color Straw (YELLOW) Urine Appearance Clear (CLEAR,HAZY) Urine pH 5.0 (5.0-8.0) Urine Specific [place] 1.015 (1.003-1.035) Urine Protein Negativemg/dL (NEG,TRACE) Urine Glucose (UA) Negativemg/dL (NEGATIVE) Urine Ketones Negativemg/dL (NEGATIVE) Urine Occult Blood Negative (NEGATIVE) Urine Nitrite Negative (NEGATIVE) Urine Bilirubin Negative (NEGATIVE) Urine Urobilinogen Normalmg/dL (NORMAL) Urine Leukocyte Esterase Negative (NEGATIVE) Urine RBC 0-2/hpf (0-2) Urine WBC 0-5/hpf (0-5) Urine Epithelial Cells Few/hpf (NONE-MOD) Urine Crystals None seen (NONE SEEN) Urine Bacteria Few/hpf (NONE-FEW) Urine Hyaline Casts None/lpf (NONE) Urine Granular Casts None seen (NONE SEEN) Urine Waxy Casts None seen (NONE SEEN) Urine Red Blood Cell Casts None seen (NONE SEEN) Urine White Blood Cell Casts None seen (NONE SEEN) Urine Mucus None seen (None Seen) Urine Trichomonas None seen (NONE SEEN) Urine Yeast None (NONE SEEN) Urinalysis Comment None Urine Culture Reflexed Not indicated Test 02/10/17 00:50 02/12/17 04:10 Troponin T 0.010ug/L (0.0-0.011) White Blood Count 14.3th/mm3 (3.8-10.1) Red Blood Count 3.50mil/mm3 (3.90-5.20) Hemoglobin 10.7g/dL (12.0-15.6) Hematocrit 32.6% (35.0-46.0) Mean Corpuscular Volume 93.1fL (81-100) Mean Corpuscular Hemoglobin 30.6pg (27.0-35.0) Mean Corpuscular Hemoglobin Concent 32.8% (32.0-37.0) Red Cell Distribution Width 12.9% (12.3-15.4) Platelet Count 253bil/L (150-400) Neutrophils (%) (Auto) 56.9% (40-74) Lymphocytes (%) (Auto) 25.6% (14-46) Monocytes (%) (Auto) 13.1% (4-12) Eosinophils (%) (Auto) 3.6% (0-5) Basophils (%) (Auto) 0.3% (0-3) Prothrombin Time 11.8sec (8.1-12.5) Prothromb Time International Ratio 1.10ratio Activated Partial Thromboplast Time 57.4sec (22.8-33.0) Sodium Level 131mEq/L (134-144) Potassium Level 3.8mEq/L (3.5-5.2) Chloride Level 95mEq/L (97-108) Carbon Dioxide Level 23mmol/L (18-29) Blood Urea Nitrogen 20mg/dL (8-27) Creatinine 0.80mg/dL (0.57-1.00) Estimat Glomerular Filtration Rate 99mL/min (>59) Glucose Level 95mg/dL (60-99) Calcium Level 8.8mg/dL (8.5-10.1) Total Bilirubin 0.6mg/dL (0.0-1.2) Aspartate Amino Transf (AST/SGOT) 15U/L (0-50) Alanine Aminotransferase (ALT/SGPT) 7U/L (0-32) Alkaline Phosphatase 95U/L (25-165) Total Protein 6.6g/dL (6.4-8.4) Albumin 3.1g/dL (3.4-5.0) Procalcitonin 0.14ng/mL (0.00-0.08) Discharge Medications Discharge Medications ([vitamin d2]) 50,000 IU WEEKLY (Reported) Apixaban (Eliquis) 5 Mg Tablet 5 MG PO BID Prescribed by: MELI JUAREZ DO Gabapentin (Gabapentin) 100 Mg Capsule 200 MG PO HS (Reported) Levothyroxine (Levothyroxine) 88 Mcg Tablet 88 MCG PO DAILY (Reported) Liothyronine Sodium (Cytomel) 25 Mcg Tablet 12.5 MCG PO DAILY (Reported) Metoprolol Succinate ER (Metoprolol Succinate ER) 25 Mg Tab.er.24h 37.5 MG PO BID Prescribed by: ANITRA WARE, Omeprazole (Omeprazole) 20 Mg Capsule.dr 20 MG PO DAILY (Reported) Triamterene/HCTZ 37.5-25 mg (Triamterene/HCTZ 37.5-25 mg) 1 Each Capsule 1 CAPSULE PO DAILY (Reported) As needed Acetaminophen (Acetaminophen) 325 Mg Tablet 325 MG PO Q4H PRN PRN For Fever ( Reported) Colchicine (Colchicine) 0.6 Mg Capsule 0.6 MG PO BID PRN PRN gout (Reported) Ketoconazole (Ketoconazole) 120 Ml Shampoo 120 ML TP DAILY PRN PRN For Itching ( Reported) Additional med instructions We have increased your home metoprolol XL dose to 37.5mg twice daily. Please discuss this change with your primary care provider as well as your Executive Services Administrator and check your heart rate several times a day as we discussed. Stop taking warfarin. Start Eliquis Followup Plan Follow-up plan Andry Seymour MD [facility] [address] [place], [place] [id number] Manav Hebert Jr., MD [facility] - Cardiology [facility] [address] [place] [address] . Discharge Diet: Heart Healthy Discharge Activity: No restrictions Patient Instructions As we discussed, check your pulse throughout the day and followup with your Executive Services Administrator, Dr. Hebert within the next week to discuss this hospital stay and medication change. The metroprolol XL dose was increased to 37.5mg twice daily (1 and 1/2 tablets. Tablets are 25mg). If your heart rate is below 60, take one 25mg tablet. Start taking the Eliquis and stop taking warfarin, you will need to discuss this change with your Executive Services Administrator as well. It is important that your followup with your primary care provider within the next week to discuss medication changes, heart rate and any concerns you may have. . Follow-up Provider: Andry Seymour MD Follow-up with PCP in: 1 week Provider: Manav Hebert MD Follow-up in: 1 week Attending Statement The patient was seen and examined together with Dr. Ware on 02-11-17 and I agree with the history, exam and plan as outlined in the note above. copies to: Manav Hebert MD; Andry Seymour MD, Courtney M DO February 12, 2017 12:15 Adilia Crowell MD February 12, 2017 16:59
[2017-02-12] MEDS ORDERED: APIX5TAB PO (14:05)
[2017-02-12 15:48] VITALS: BP 124/79; PULSE 106; RESP 22; O2SAT 96
--- NOTE | 2017-02-12 15:58 | NUR ---
Social Work Note: Discharge Data& Assessment: EMR reviewed. Per pt is medically ready to discharge home via POV. Zuly Adkins is a 76 year old female admitted on 02/09/2017 for AFIB and cardizem. SW met with pt at bedside to confirm discharge plan and assess for any unmet needs. Pt son to provide transportation. Pt son left voicemail with SW acknowledging pt discharge. provided pt with a medical coupon for Eliquis. Pt is ambulating at baseline. Pt anxious to get back to working. Pt denies any other needs at this time. No other discharge needs identified. Plan: Per pt is medically ready to discharge home via POV. Pt son transporting her home. Pt denies any other needs at this time. No other discharge needs identified. HENNY Villasenor
--- NOTE | 2017-02-12 17:45 | NUR ---
Discharge Filippo A&Ox3, VSS. denies pain and states she is feeling much stronger today. Discharge information and medication education printed and reviewed verbally with patient. Patient left unit via wc with all personal belongings accompanied by her son and transported home via personal vehicle.
== END 2017-02-12 17:45 | disposition home or self-care (01) | DRG 309 ==
LOC: EDBD 21:21 → EDUNIT# 21:21 → SED 21:41 → PCC 02-09 02:41 → INTOOBSV 02-09 02:41 → OBSVTOIN 02-09 02:41
PROVIDERS: ADMIT Hospitalist; ATTEND Hospitalist
DX: I48.91 Unspecified atrial fibrillation (principal); I50.32 Chronic diastolic (congestive) heart failure; Z79.01 Long term (current) use of anticoagulants; D05.02 Lobular carcinoma in situ of left breast; M10.9 Gout, unspecified; E03.9 Hypothyroidism, unspecified; R79.1 Abnormal coagulation profile; I10 Essential (primary) hypertension; K21.9 Gastro-esophageal reflux disease without esophagitis; D72.829 Elevated white blood cell count, unspecified; Z90.12 Acquired absence of left breast and nipple